=== PATIENT | male | born 1945 | race Caucasian/White ===

== ENCOUNTER → 2023-12-05 10:08 | Outpatient (REF) | payer OTHER, SELFPAY ==
[2023-12-05 11:25] LABS: Blood Urea Nitrogen 24 mg/dl (9-20); Calcium 9.9 mg/dl (8.4-10.2); Carbon Dioxide 29 mmol/L (22-30); Chloride 98 mmol/L (98-107); Glucose 112 mg/dl (70-99); Potassium 5.1 mmol/L (3.5-5.1); Sodium 138 mmol/L (135-145); eGFR > 60.00
== END ==
LOC: REG 10:08
PROVIDERS: ATTENDING PHYSICIAN Urology; FAMILY PHYSICIAN Family Medicine
DX: N28.89 Other specified disorders of kidney and ureter (principal); C64.2 Malignant neoplasm of left kidney, except renal pelvis
CPT/HCPCS: 36415; 80048

== ENCOUNTER → 2023-12-20 09:14 | Outpatient (REF) | payer OTHER, SELFPAY | LOC: RAD 09:14 | PROVIDERS: ATTENDING PHYSICIAN Urology; FAMILY PHYSICIAN Family Medicine | DX: C64.2 Malignant neoplasm of left kidney, except renal pelvis (principal) | CPT/HCPCS: 74160; Q9967 ==

== ENCOUNTER → 2024-05-04 10:32 | Outpatient (REF) | payer OTHER, SELFPAY ==
[2024-05-04 11:44] LABS: Blood Urea Nitrogen 25 mg/dl (9-20); Calcium 9.6 mg/dl (8.4-10.2); Carbon Dioxide 26 mmol/L (22-30); Chloride 102 mmol/L (98-107); Glucose 165 mg/dl (70-99); Potassium 4.4 mmol/L (3.5-5.1); Sodium 143 mmol/L (135-145); eGFR > 60.00
[2024-05-06 03:48] LABS: PSA, Ultrasensitive 0.04 ng/mL (0.00-4.00)
== END ==
LOC: REG 10:32
PROVIDERS: ATTENDING PHYSICIAN Urology; FAMILY PHYSICIAN Family Medicine
DX: N28.89 Other specified disorders of kidney and ureter (principal); C64.2 Malignant neoplasm of left kidney, except renal pelvis
CPT/HCPCS: 36415; 80048; 84153

== ENCOUNTER → 2024-06-17 07:31 | Outpatient (REF) | payer OTHER, SELFPAY | LOC: RAD 07:31 | PROVIDERS: ATTENDING PHYSICIAN Urology; FAMILY PHYSICIAN Family Medicine | DX: N28.89 Other specified disorders of kidney and ureter (principal); C64.2 Malignant neoplasm of left kidney, except renal pelvis | CPT/HCPCS: 71260; 74170; Q9967 ==

== ENCOUNTER 2024-07-18 16:29 | Emergency (ER) | payer OTHER, SELFPAY ==
[2024-07-18 16:32] VITALS: BP 162/92
[2024-07-18 16:59] LABS: Urine Albumin Trace (Neg - Trace); Urine Bilirubin Negative (Negative); Urine Character Clear (Clear); Urine Color Yellow; Urine Glucose Negative (Negative); Urine Ketone Negative (Negative); Urine Leukocyte Trace (Negative); Urine Nitrite Negative (Negative); Urine Occult Blood Trace (Negative); Urine Urobilinogen Negative (Neg - 1+)
[2024-07-18 17:09] LABS: Urine Mucus Moderate; Urine Squamous Cell 0-2 /LPF (Few)
[2024-07-18 17:10] LABS: Urine White Cell 0-2 /HPF (0-5)
[2024-07-18 17:16] LABS: COVID-19 Antigen Positive (Negative)
--- NOTE | 2024-07-18 20:09 | ED.GENMED ---
History of Present Illness
General
Chief Complaint: Cold/Flu/URI Symptoms
Time Seen by Provider: 07/18/24 19:30
History of Present Illness
History of Present Illness:
79-year-old male presents to the emergency department for evaluation of dry cough and general malaise for the past 2 days. Primary concern is that he cannot sleep due to coughing. Denies chest pain or shortness of breath
Past History
Past History
ED Past Medical History: CAD, Cancer (Prostate), HTN, Hypercholesterolemia, [place] and Other (Diverticulitis, kidney stones)
ED Past Surgical History: Appendectomy, Cardiac and Urological
Social History
Tobacco: Non-smoker
Alcohol: Occasional
Drug: None
Personal:
Living: with family
Employment: Retired
Family History
Family History: CAD
Review of Systems
Review of Systems
Allergies reviewed?: Yes
All Other Systems: ROS reviewed and negative except as documented in HPI and ROS
Phy Exam
Physical Exam
Physical Exam:
GEN: Well appearing, NAD, WDWN
HEENT: Oral mucosa moist, no scleral icterus
Cardiac: Regular rate and rhythm, no murmurs
Lung: No respiratory distress, no tachypnea, lungs clear to auscultation bilaterally
MSK: No gross deformity or injuries
Skin: Good color, no pallor or jaundice, no rashes
Neuro: AO x3, moves all extremities freely
Psych: Calm, cooperative
Course
Orders/Labs/Results
Orders:
Orders
07/18/24 16:36
EKG [Electrocardiogram (*1)] Urgent
Reason for Study: Other
Other Reason for Exam: cough
07/18/24 16:37
EKG- Treatment ONCE
07/18/24 16:43
COVID-19 Antigen Urgent
Source: Nasal Swab
UA Reflex to Culture [Urinalysis Reflex To Culture] Urgent
Date Specimen was Collected: 07/18/24
Time Specimen was Collected: 16:37
Urine Microscopic Reflex Cult Urgent
Influenza A+B Rapid Molecular Urgent
FATIMAH Source: Nasal Swab
Specimen Description:
07/18/24 20:09
Guaifenesin/Codeine Solution [Robitussin AC] 10 ml PO NOW STA
Abnormal Lab Results
07/18/24
16:43
Ur Occult Blood Reflex Trace A
(Negative)
Leukocyte Esterase Rfl Trace A
(Negative)
Urine RBC 3-6 A /HPF
(0-2)
SARS-CoV-2 Antigen Positive A
(Negative)
Vital Signs
Initial and Last Documented VS:
Initial Vital Signs
Temp Pulse Resp BP Pulse Ox
99.2 F 95 16 162/92 98
07/18/24 16:32 07/18/24 16:32 07/18/24 16:32 07/18/24 16:32 07/18/24 16:32
Last Documented Vital Signs
Temp Pulse Resp BP Pulse Ox
99.2 F 95 20 162/92 96
07/18/24 16:32 07/18/24 20:19 07/18/24 20:19 07/18/24 16:32 07/18/24 20:19
MDM/Problems Addressed
MDM/Problems Addressed:
Patient tested positive for COVID-19. Labs otherwise reassuring. Discussed potential benefit and risk of antiviral therapy, at this time through shared decision making we opted to withhold antivirals particular given the mild case the patient
displays at this time. Provided with antitussives, discussed other supportive care measures
*Critical Care Note
Total Time (30-74mins, 75-104mins- exclusive of procedures): Not Applicable
ED Attending Note
-
Portions of this chart may have been created with voice recognition software.� Occasional wrong word or��sound alike� substitutions may have occurred due to the inherent limitations of voice recognition software.
Discharge Plan
Departure
Patient Disposition: Home (Routine Discharge)
Date of Disposition: 07/18/24
Time of Disposition: 20:09
Patient with high blood pressure during this ER visit?: No
Discharge Problem:
COVID-19
Instructions: COVID-19 - ED discharge instructions
Prescriptions:
New
codeine-guaifenesin [Guaifenesin AC] 10-100 mg/5 mL liquid
10 ml PO Q6H PRN (Reason: Cough) Qty: 120 0RF
No Action
Fish Oil 1,000 MG capsule
1 cap PO DAILY
lovastatin 40 MG tablet
40 mg PO HS
aspirin 81 MG tablet,delayed release (DR/EC)
81 mg PO DAILY
esomeprazole magnesium [Nexium] 40 MG capsule,delayed release(DR/EC)
40 mg PO DAILY
benazepril [Lotensin] 20 MG tablet
40 mg PO DAILY
nebivolol 10 MG tablet
10 mg PO DAILY
furosemide 40 MG tablet
40 mg PO DIRECTED
Rx Instructions:
patient takes every 3rd day
amlodipine 5 MG tablet
5 mg PO DAILY
acetaminophen 325 MG tablet
650 mg PO Q4HPRN PRN (Reason: mild pain) 0RF
Referrals:
Jaime Negrete DO [Family Provider] -
Interventions
Interventions:
*Risk Screen - Suicide Last Done: 07/18/24 16:32
*General Assessment Last Done: 07/18/24 20:21
*Neglect/Abuse Screening Last Done: 07/18/24 16:32
ED- Fall Risk Assessment Last Done: 07/18/24 20:21
*ED COVID-19 Vaccine History Last Done: 07/18/24 20:21
*Nursing Disposition Last Done: 07/18/24 20:21
ED- Pulmonary Assessment Last Done: 12/28/24 20:19
Discharge Date and Time
Print Language: OCCITAN
[2024-07-18] MEDS: ROBITUSSIN AC 10 ML PO (20:14)
== END 2024-07-18 20:22 | disposition home or self-care (01) ==
LOC: EMR 16:29
PROVIDERS: Emergency Medicine; EMERGENCY PHYSICIAN Emergency Medicine; FAMILY PHYSICIAN Family Medicine
DX: U07.1 COVID-19 (principal); I25.10 Atherosclerotic heart disease of native coronary artery without angina pectoris; I10 Essential (primary) hypertension; E78.00 Pure hypercholesterolemia, unspecified; Z90.49 Acquired absence of other specified parts of digestive tract
CPT/HCPCS: 99284; 81003; 81015; 87502; 87811; 93005

== ENCOUNTER → 2024-08-13 13:54 | Outpatient (REF) | payer OTHER, SELFPAY | LOC: HWRAD 13:54 | PROVIDERS: ATTENDING PHYSICIAN Urology; FAMILY PHYSICIAN Family Medicine | DX: E07.9 Disorder of thyroid, unspecified (principal) | CPT/HCPCS: 76536 ==

== ENCOUNTER → 2024-12-11 14:29 | Outpatient (REF) | payer OTHER, SELFPAY ==
[2024-12-11 15:51] LABS: Blood Urea Nitrogen 23 mg/dl (9-20); Calcium 9.2 mg/dl (8.4-10.2); Carbon Dioxide 30 mmol/L (22-30); Chloride 103 mmol/L (98-107); Glucose 156 mg/dl (70-99); Potassium 4.6 mmol/L (3.5-5.1); Sodium 141 mmol/L (135-145); eGFR > 60.00
== END ==
LOC: REG 14:29
PROVIDERS: ATTENDING PHYSICIAN Urology; FAMILY PHYSICIAN Family Medicine
DX: N28.89 Other specified disorders of kidney and ureter (principal); C64.2 Malignant neoplasm of left kidney, except renal pelvis
CPT/HCPCS: 36415; 80048

== ENCOUNTER → 2024-12-18 08:35 | Outpatient (REF) | payer OTHER, SELFPAY | LOC: RAD 08:35 | PROVIDERS: ATTENDING PHYSICIAN Urology; FAMILY PHYSICIAN Family Medicine | DX: N28.89 Other specified disorders of kidney and ureter (principal); C64.2 Malignant neoplasm of left kidney, except renal pelvis | CPT/HCPCS: 71260; 74170; Q9967 ==

== ENCOUNTER 2024-12-27 12:58 | Emergency (ER) | payer OTHER, SELFPAY ==
[2024-12-27 13:02] VITALS: BP 162/92
[2024-12-27 13:24] LABS: % Basophils 0.3 % (0-2); % Eosinophils 1.4 % (0-6); % Immature Granulocytes 0.5 % (0-0.5); % Lymphocytes 20.5 % (20.5-51.1); % Monocytes 7.9 % (1.7-9.3); % Neutrophils 69.4 % (42.2-75.2); Absolute Eosinophils 0.1 10^3/uL (0-0.7); Absolute Lymphocytes 1.5 10^3/uL (1.2-3.4); Absolute Monocytes 0.6 10^3/uL (0.1-0.6); Absolute Neutrophils 5.1 10^3/uL (1.4-6.5); Hematocrit 43.2 % (39.0-52.0); Hemoglobin 14.1 g/dL (13.0-18.0); Mean Corp Hgb Conc. 32.6 g/dL (33.0-37.0); Mean Corpuscular Hgb 26.4 pg (27.0-31.0); Mean Corpuscular Volume 80.7 fL (80.0-94.0); Mean Platelet Volume 9.9 fL (7.4-10.4); Nucleated Red Blood Cells % 0 % (-); Platelet Count 219 10^3/uL (130-400); Red Blood Cell Count 5.35 10^6/uL (4.70-6.10); Red Cell Dist. Width 14.8 % (11.5-14.5); White Blood Cell Count 7.4 10^3/uL (4.8-10.8)
[2024-12-27 13:54] LABS: ALT (SGPT) 29 U/L (0-50); AST (SGOT) 27 U/L (17-59); Albumin 4.5 g/dl (3.5-5.0); Alkaline Phosphatase 48 U/L (38-126); Blood Urea Nitrogen 18 mg/dl (9-20); Calcium 9.3 mg/dl (8.4-10.2); Carbon Dioxide 26 mmol/L (22-30); Chloride 106 mmol/L (98-107); Glucose 120 mg/dl (70-99); Potassium 4.1 mmol/L (3.5-5.1); Sodium 141 mmol/L (135-145); Total Bilirubin 0.7 mg/dl (0.2-1.3); Total Protein 7.4 g/dl (6.3-8.2); eGFR > 60.00
--- NOTE | 2024-12-27 15:00 | ED.GENMED ---
History of Present Illness
General
Chief Complaint: Dizziness
Source: patient
Exam Limitations: none
Time Seen by Provider: 12/27/24 14:53
Nursing documentation reviewed up to this point in time: agreed with
History of Present Illness
History of Present Illness:
79-year-old male presents emergency department due to dizziness, headache. He was outside all day on , when the symptoms began. He also had them about 8 weeks ago. He is feeling somewhat better at this time.
Past History
Past History
ED Past Medical History: CAD, Cancer (Prostate), HTN, Hypercholesterolemia, [place] and Other (Diverticulitis, kidney stones)
ED Past Surgical History: Appendectomy, Cardiac and Urological
Social History
Tobacco: Non-smoker
Alcohol: Occasional
Drug: None
Personal:
Living: with family
Employment: Retired
Family History
Family History: CAD
Review of Systems
Review of Systems
Allergies reviewed?: Yes
All Other Systems: Not applicable
Constitutional: Reports no symptoms
EENT: Reports no symptoms
Respiratory: Reports no symptoms
Cardiac: Reports no symptoms
ABD/GI: Reports no symptoms
: Reports no symptoms
Musculoskeletal: Reports no symptoms
Skin: Reports no symptoms
Neurological: Reports dizzy
Endocrine: Reports no symptoms
Hematologic/Lymphatic: Reports no symptoms
Psychiatric: Reports no symptoms
Phy Exam
Physical Exam
Physical Exam:
Physical Exam
General: no apparent distress, not acutely ill
Neck: supple. no meningeal signs. normal posterior pharynx
Heart: s1/s2 regular rate and rhythm, no murmur. equal radial
pulses.
HEENT: Pupils equal round reactive to light, EOMI
Lungs: no acute respiratory distress. clear bilaterally
Abdomen: normal bowel sounds. not tender. no CVAT
Neuro: alert and oriented. no focal neurological deficits cranial nerves II through XII intact
Skin: no rash
Psychiatric: well kept. interactive and cooperative
Extremities: no edema. no calf tenderness. negative homans. good distal pulses
Course
Orders/Labs/Results
Orders:
Orders
12/27/24 13:00
EKG [Electrocardiogram (*1)] Urgent
Reason for Study: Vertigo / Dizzy
EKG- Treatment ONCE
12/27/24 13:14
CBC/With Diff [Complete Blood Count/With Diff] Urgent
CMP [Comprehensive Metabolic Panel] Urgent
12/27/24 15:11
CT Head W/o Iv Contrast Urgent
Comment:
Reason For Exam: dizziness
Physical Therapy Consult [Pt Eval And Treat] Urgent
Treatment: eval and treat vestibular
Activity Level: Ambulate
Abnormal Lab Results
12/27/24
13:14
MCH 26.4 L pg
(27.0-31.0)
MCHC 32.6 L g/dL
(33.0-37.0)
RDW 14.8 H %
(11.5-14.5)
Creatinine 0.6 L mg/dL
(0.7-1.3)
Glucose 120 H mg/dl
(70-99)
12/27/24 13:14
12/27/24 13:14
Vital Signs
Initial and Last Documented VS:
Initial Vital Signs
Temp Pulse Resp BP Pulse Ox
98.4 F 67 15 162/92 98
12/27/24 13:02 12/27/24 13:02 12/27/24 13:02 12/27/24 13:02 12/27/24 13:02
Last Documented Vital Signs
Temp Pulse Resp BP Pulse Ox
98.4 F 67 15 162/92 98
12/27/24 13:02 12/27/24 13:02 12/27/24 13:02 12/27/24 13:02 12/27/24 13:02
MDM/Problems Addressed
Differential Diagnosis Includes:
CVA, vertigo
MDM/Problems Addressed:
79-year-old male with vertigo, doubt CVA. Stable for discharge. Follow-up with physical therapy. Meclizine prescribed.
*Radiology
Radiology exam reviewed: preliminary read by ED provider (CT head no acute findings)
*Pulse Oximetry
Patient hypoxic: no (98% room air)
*EKG
Interpreted by ED Provider?: Yes
EKG Intrepretation Date: 12/27/24
EKG Intrepretation Time: 13:07
Interpretation: abnormal
Comparison EKG: changes noted
Heart Rate: 67
Rate: normal
Rhythm: sinus
[place]: normal axis
Interval: normal interval
QRS Pattern: right bundle branch block
Ischemia: no ischemia
*Export Agent Interpretation
Rate: normal
Interpretation: normal
Rhythm: sinus
*Critical Care Note
Total Time (30-74mins, 75-104mins- exclusive of procedures): Not Applicable
Patient Management
Social determinants of health affecting care: Living situation and Strong social support
Escalation/DeEscalation of care consider admission/obs:
admit not indicated
ED Attending Note
-
Portions of this chart may have been created with voice recognition software.� Occasional wrong word or��sound alike� substitutions may have occurred due to the inherent limitations of voice recognition software.
Discharge Plan
Departure
Patient with high blood pressure during this ER visit?: Yes
Condition: Good
Discharge Problem:
Vertigo
Instructions: Vertigo (a Type of Dizziness) (DC), BLOOD PRESSURE
Prescriptions:
New
meclizine 25 mg tablet
25 mg PO TID PRN (Reason: dizziness) Qty: 10 0RF
No Action
Fish Oil 1,000 MG capsule
1 cap PO DAILY
lovastatin 40 MG tablet
40 mg PO HS
aspirin 81 MG tablet,delayed release (DR/EC)
81 mg PO DAILY
esomeprazole magnesium [Nexium] 40 MG capsule,delayed release(DR/EC)
40 mg PO DAILY
benazepril [Lotensin] 20 MG tablet
40 mg PO DAILY
nebivolol 10 MG tablet
10 mg PO DAILY
furosemide 40 MG tablet
40 mg PO DIRECTED
Rx Instructions:
patient takes every 3rd day
amlodipine 5 MG tablet
5 mg PO DAILY
acetaminophen 325 MG tablet
650 mg PO Q4HPRN PRN (Reason: mild pain) 0RF
codeine-guaifenesin [Guaifenesin AC] 10-100 mg/5 mL liquid
10 ml PO Q6H PRN (Reason: Cough) Qty: 120 0RF
Referrals:
Jaime Negrete DO [Family Provider, Family Practice]
Interventions
Interventions:
*Risk Screen - Suicide Last Done: 12/27/24 13:02
*General Assessment Last Done: 12/27/24 13:02
*Neglect/Abuse Screening Last Done: 12/27/24 13:04
*ED- Fall Risk Assessment Last Done: 12/27/24 15:12
*ED COVID-19 Vaccine History Last Done: 12/27/24 15:12
ED- Neurological Assessment Last Done: 12/27/24 15:12
Discharge Date and Time
Print Language: [id number]
[2024-12-27 15:11] VITALS: BMI 37.1
[2024-12-27 16:03] VITALS: BP 146/87; BP 173/93; PULSE 104; O2SAT 98
== END 2024-12-27 18:00 | disposition home or self-care (01) ==
LOC: EMR 12:58
PROVIDERS: Emergency Medicine; EMERGENCY PHYSICIAN Emergency Medicine; FAMILY PHYSICIAN Family Medicine
DX: R42 Dizziness and giddiness (principal); I10 Essential (primary) hypertension
CPT/HCPCS: 99285; 70450; 80053; 85025; 93005

== ENCOUNTER 2025-01-11 13:30 | Outpatient (RCR) | payer OTHER, SELFPAY | END 2025-01-11 23:59 | disposition home or self-care (01) | LOC: RPT 13:30 | PROVIDERS: ATTENDING PHYSICIAN Emergency Medicine; FAMILY PHYSICIAN Family Medicine | DX: R42 Dizziness and giddiness (principal); Z73.6 Limitation of activities due to disability | CPT/HCPCS: 97112; 97163; 97530 ==

== ENCOUNTER 2025-02-05 07:12 | Outpatient (RCR) | payer OTHER, SELFPAY | END 2025-02-05 23:59 | disposition home or self-care (01) | LOC: RPT 07:12 | PROVIDERS: ATTENDING PHYSICIAN Emergency Medicine; FAMILY PHYSICIAN Family Medicine | DX: R42 Dizziness and giddiness (principal); Z73.6 Limitation of activities due to disability | CPT/HCPCS: 97112; 97530 ==

== ENCOUNTER 2025-02-23 15:24 | Outpatient (RCR) | payer OTHER, SELFPAY | END 2025-02-23 23:59 | disposition home or self-care (01) | LOC: RPT 15:24 | PROVIDERS: ATTENDING PHYSICIAN Emergency Medicine; FAMILY PHYSICIAN Family Medicine | DX: R42 Dizziness and giddiness (principal); Z73.6 Limitation of activities due to disability | CPT/HCPCS: 97112 ==

== ENCOUNTER → 2025-03-31 10:43 | Outpatient (REF) | payer OTHER, SELFPAY ==
[2025-03-31 12:02] LABS: ALT (SGPT) 41 U/L (0-50); AST (SGOT) 32 U/L (17-59); Albumin 4.7 g/dl (3.5-5.0); Alkaline Phosphatase 50 U/L (38-126); Blood Urea Nitrogen 17 mg/dl (9-20); Calcium 10.0 mg/dl (8.4-10.2); Carbon Dioxide 28 mmol/L (22-30); Chloride 100 mmol/L (98-107); Glucose 97 mg/dl (70-99); HDL Cholesterol 43 mg/dl; LDL Cholesterol, Calculated 106 mg/dl; Potassium 4.6 mmol/L (3.5-5.1); Sodium 138 mmol/L (135-145); Total Protein 7.8 g/dl (6.3-8.2); Very Low Density Lipoprotein 52 mg/dl (0-30); eGFR > 60.00
[2025-03-31 12:32] LABS: PSA, Total - Screen 0.10 ng/ml (0.0-4.0)
[2025-03-31 13:38] LABS: Glycohemoglobin (HgbA1c) 6.8 % (4.0-5.6)
== END ==
LOC: REG 10:43
PROVIDERS: ATTENDING PHYSICIAN Family Medicine
DX: Z00.01 Encounter for general adult medical examination with abnormal findings (principal); I10 Essential (primary) hypertension; C61 Malignant neoplasm of prostate; E78.2 Mixed hyperlipidemia; E11.9 Type 2 diabetes mellitus without complications
CPT/HCPCS: 36415; 80053; 80061; 83036; G0103